=== PATIENT | male | born 1970 | race Caucasian/White ===

== ENCOUNTER 2020-08-17 20:52 | Emergency (ER) | payer MEDICARE ==
[~2020-08-17] VITALS: Ht 175.3 cm; Wt 54.5 kg
[2020-08-17 21:33] LABS: HEMATOCRIT 43.6 % (39.0-50.0); HEMOGLOBIN 14.1 g/dl (14.0-18.0); IMMATURE GRANULOCYTES 0.2 % (0.0-5.0); MEAN CELL VOLUME 98.6 fL CALC (80.0-100.0); MEAN CORPUSCULAR HGB 31.9 pG CALC (26.0-32.0); MEAN CORPUSCULAR HGB CONC 32.3 g/dL CAL (32.0-36.0); NEUT# 4.58 thou/uL (1.82-7.42); RED BLOOD COUNT 4.42 mill/uL (4.70-6.10)
[2020-08-17 21:52] LABS: ALBUMIN 4.5 g/dL (3.2-5.0); ALKALINE PHOSPHATASE 113 u/l (38-126); ANION GAP 17 (6-22 (CALC)); BILIRUBIN, TOTAL 0.2 mg/dL (0.0-1.4); BUN 8 mg/dL (9-20); BUN/CREATININE RATIO 8 (12-20 (CALC)); CARBON DIOXIDE 17 mmol/l (22-30); CHLORIDE 116 mmol/l (95-108); CREATININE 1.1 mg/dL (0.7-1.3); GFR > 60 ML/MIN (>=60 (CALC)); GFR FOR AFR.AMER. > 60 ML/MIN (>=60 (CALC)); SGOT/AST 25 u/l (17-59); SODIUM 146 mmol/l (137-146)
[2020-08-17 23:33] LABS: URINE BILIRUBIN - DIPSTICK NEGATIVE (NEGATIVE); URINE BLOOD DIPSTICK NEGATIVE (NEGATIVE); URINE COLOR YELLOW; URINE GLUCOSE - DIPSTICK NEGATIVE (NEGATIVE); URINE KETONE NEGATIVE (NEGATIVE); URINE LEUK ESTERASE NEGATIVE (NEGATIVE); URINE NITRITE - DIPSTICK NEGATIVE (Negative); URINE PROTEIN - DIPSTICK NEGATIVE (NEG-TRACE); URINE SPECIFIC GRAVITY <=1.005; URINE UROBILINOGEN - DIPSTICK 0.2 E.U./dL (0.2)
[2020-08-17] MEDS ORDERED: DOXYCYCL HYC100 MG PO (23:53)
[2020-08-18 00:10] VITALS: BP 155/86
== END 2020-08-18 00:10 | disposition home or self-care (01) ==
LOC: ED 20:52
PROVIDERS: Family Medicine
DX: N45.1 Epididymitis (principal); N43.3 Hydrocele, unspecified; I10 Essential (primary) hypertension

== ENCOUNTER 2021-07-12 10:48 | Emergency (ER) | payer MEDICARE ==
[~2021-07-12] VITALS: Ht 175.3 cm; Wt 54.0 kg
[~2021-07-12 10:48] MED LIST: DOXYCYCL HYC100 MG PO
[2021-07-12 12:27] LABS: HEMATOCRIT 47.2 % (39.0-50.0); HEMOGLOBIN 15.8 g/dl (14.0-18.0); IMMATURE GRANULOCYTES 0.3 % (0.0-5.0); MEAN CELL VOLUME 101.5 fL CALC (80.0-100.0); MEAN CORPUSCULAR HGB CONC 33.5 g/dL CAL (32.0-36.0); NEUT# 3.38 thou/uL (1.82-7.42); RED BLOOD COUNT 4.65 mill/uL (4.70-6.10); RED CELL DISTRI WIDTH 14.4 % (11.5-15.5)
[2021-07-12 12:40] LABS: ALBUMIN 4.4 g/dL (3.2-5.0); ALKALINE PHOSPHATASE 122 u/l (38-126); BUN 8 mg/dL (9-20); BUN/CREATININE RATIO 9 (12-20 (CALC)); CHLORIDE 111 mmol/l (95-108); CREATININE 0.9 mg/dL (0.7-1.3); GFR > 60 ML/MIN (>=60 (CALC)); GFR FOR AFR.AMER. > 60 ML/MIN (>=60 (CALC)); POTASSIUM 3.7 mmol/l (3.5-5.1); SODIUM 147 mmol/l (137-146); TOTAL PROTEIN 8.1 g/dL (6.3-8.2)
[2021-07-12 12:45] LABS: ANION GAP 17 (6-22 (CALC)); BILIRUBIN, TOTAL 0.4 mg/dL (0.0-1.4); CARBON DIOXIDE 23 mmol/l (22-30); SGOT/AST 63 u/l (17-59)
[2021-07-12] MEDS ORDERED: LORTAB 5/3255 MG PO (16:02)
[2021-07-12 16:23] VITALS: BP 170/88
== END 2021-07-12 16:23 | disposition home or self-care (01) ==
LOC: ED 10:48
PROVIDERS: Emergency Medicine
DX: N43.3 Hydrocele, unspecified (principal); I10 Essential (primary) hypertension; F41.9 Anxiety disorder, unspecified; K50.90 Crohn's disease, unspecified, without complications
CPT/HCPCS: Q9967

== ENCOUNTER 2021-07-31 10:36 | Day surgery (SDC) | payer MEDICARE ==
[~2021-07-31] VITALS: Ht 175.3 cm; Wt 54.4 kg
[~2021-07-31 10:36] MED LIST changes: +LORTAB 5/3255 MG PO; +MULTIVITAMIN1 TA1 PO; +NIGHTTIME SLEEP25 M1 PO; +POTASSIUM99 MG PO; +SLOW RELEASE IR50 MG PO; +TYLENOL325 M2 PO
[2021-07-31 14:23] VITALS: BP 167/91
== END 2021-07-31 14:57 | disposition home or self-care (01) ==
LOC: ORM 10:36
PROVIDERS: ATTEND Urology
PROC: 0VB60ZZ Excision of Right Tunica Vaginalis, Open Approach (ICD-10-PCS; principal; 2021-07-31)
DX: N43.3 Hydrocele, unspecified (principal); I10 Essential (primary) hypertension; I45.6 Pre-excitation syndrome; K50.90 Crohn's disease, unspecified, without complications; F17.210 Nicotine dependence, cigarettes, uncomplicated
CPT/HCPCS: J0131

== ENCOUNTER 2021-08-08 19:02 | Emergency (ER) | payer MEDICARE ==
[~2021-08-08] VITALS: Ht 175.3 cm; Wt 52.0 kg
[2021-08-08 19:47] LABS: HEMATOCRIT 44.2 % (39.0-50.0); HEMOGLOBIN 14.1 g/dl (14.0-18.0); IMMATURE GRANULOCYTES 0.2 % (0.0-5.0); MEAN CELL VOLUME 104.7 fL CALC (80.0-100.0); MEAN CORPUSCULAR HGB 33.4 pG CALC (26.0-32.0); MEAN CORPUSCULAR HGB CONC 31.9 g/dL CAL (32.0-36.0); NEUT# 7.51 thou/uL (1.82-7.42); RED BLOOD COUNT 4.22 mill/uL (4.70-6.10); RED CELL DISTRI WIDTH 13.7 % (11.5-15.5)
[2021-08-08 20:01] LABS: ALBUMIN 4.1 g/dL (3.2-5.0); ALKALINE PHOSPHATASE 101 u/l (38-126); ANION GAP 21 (6-22 (CALC)); BILIRUBIN, TOTAL 0.5 mg/dL (0.0-1.4); BUN 8 mg/dL (9-20); BUN/CREATININE RATIO 10 (12-20 (CALC)); CARBON DIOXIDE 20 mmol/l (22-30); CHLORIDE 106 mmol/l (95-108); CREATININE 0.8 mg/dL (0.7-1.3); GFR > 60 ML/MIN (>=60 (CALC)); GFR FOR AFR.AMER. > 60 ML/MIN (>=60 (CALC)); POTASSIUM 4.9 mmol/l (3.5-5.1); SGOT/AST 33 u/l (17-59); SODIUM 142 mmol/l (137-146); TOTAL PROTEIN 7.9 g/dL (6.3-8.2)
[2021-08-08 20:11] LABS: MYOGLOBIN 22 ng/mL (0 - 121)
[2021-08-08 20:50] LABS: URINE BILIRUBIN - DIPSTICK NEGATIVE (NEGATIVE); URINE BLOOD DIPSTICK NEGATIVE (NEGATIVE); URINE COLOR YELLOW; URINE GLUCOSE - DIPSTICK NEGATIVE (NEGATIVE); URINE KETONE NEGATIVE (NEGATIVE); URINE LEUK ESTERASE NEGATIVE (NEGATIVE); URINE PROTEIN - DIPSTICK NEGATIVE (NEG-TRACE); URINE UROBILINOGEN - DIPSTICK 0.2 E.U./dL (0.2)
[2021-08-08 21:01] LABS: URINE NITRITE - DIPSTICK NEGATIVE (Negative)
[2021-08-08] MEDS ORDERED: PREVACID30 M3 PO (23:12)
[2021-08-08 23:27] VITALS: BP 134/79
== END 2021-08-08 23:27 | disposition home or self-care (01) ==
LOC: ED 19:02
PROVIDERS: Emergency Medicine
DX: K22.89 Other specified disease of esophagus (principal); R00.0 Tachycardia, unspecified; F10.10 Alcohol abuse, uncomplicated; I10 Essential (primary) hypertension; K50.90 Crohn's disease, unspecified, without complications; F41.9 Anxiety disorder, unspecified; F17.200 Nicotine dependence, unspecified, uncomplicated; Y90.8 Blood alcohol level of 240 mg/100 ml or more

== ENCOUNTER 2021-08-25 22:17 | Emergency (ER) | payer MEDICARE ==
[~2021-08-25] VITALS: Ht 175.3 cm; Wt 58.0 kg
[~2021-08-25 22:17] MED LIST changes: +PREVACID30 M3 PO
[2021-08-25 23:18] LABS: HEMATOCRIT 42.1 % (39.0-50.0); IMMATURE GRANULOCYTES 2.1 % (0.0-5.0); MEAN CELL VOLUME 108.8 fL CALC (80.0-100.0); MEAN CORPUSCULAR HGB 33.6 pG CALC (26.0-32.0); MEAN CORPUSCULAR HGB CONC 30.9 g/dL CAL (32.0-36.0); RED BLOOD COUNT 3.87 mill/uL (4.70-6.10); RED CELL DISTRI WIDTH 13.1 % (11.5-15.5)
[2021-08-25 23:19] LABS: PLATELET COUNT 127 thou/uL (130-400)
[2021-08-25 23:20] LABS: MANUAL DIFFERENTIAL YES
[2021-08-25 23:30] LABS: ALBUMIN 3.8 g/dL (3.2-5.0); BUN 11 mg/dL (9-20); CHLORIDE 95 mmol/l (95-108); SODIUM 138 mmol/l (137-146); TOTAL PROTEIN 8.2 g/dL (6.3-8.2)
[2021-08-25 23:40] LABS: BUN/CREATININE RATIO 5 (12-20 (CALC)); CREATININE 2.4 mg/dL (0.7-1.3); GFR 29 ML/MIN (>=60 (CALC)); GFR FOR AFR.AMER. 35 ML/MIN (>=60 (CALC)); POTASSIUM 3.1 mmol/l (3.5-5.1)
[2021-08-25 23:43] LABS: ALKALINE PHOSPHATASE 236 u/l (38-126); ANION GAP 41 (6-22 (CALC)); BILIRUBIN, TOTAL 7.2 mg/dL (0.0-1.4); CARBON DIOXIDE < 5 mmol/l (22-30)
[2021-08-25 23:50] LABS: BAND 1 % (0-8)
[2021-08-26 00:07] LABS: SGOT/AST 17217 u/l (17-59)
[2021-08-26 01:12] LABS: TSH, 3RD GENERATION 0.96 uIU/mL (0.47 - 4.68)
[2021-08-26 01:40] VITALS: BP 121/74
== END 2021-08-26 01:55 | disposition short-term general hospital (02) ==
LOC: ED 22:17
PROVIDERS: Emergency Medicine
PROC: 02HV33Z Insertion of Infusion Device into Superior Vena Cava, Percutaneous Approach (ICD-10-PCS; principal; 2021-08-25)
DX: A41.9 Sepsis, unspecified organism (principal); R65.20 Severe sepsis without septic shock; K72.90 Hepatic failure, unspecified without coma; N19 Unspecified kidney failure; E87.2 Acidosis; E86.0 Dehydration; E16.2 Hypoglycemia, unspecified; R68.0 Hypothermia, not associated with low environmental temperature; I10 Essential (primary) hypertension; K50.90 Crohn's disease, unspecified, without complications; F41.9 Anxiety disorder, unspecified; F17.210 Nicotine dependence, cigarettes, uncomplicated; Z20.822 Contact with and (suspected) exposure to COVID-19
CPT/HCPCS: J2060